=== PATIENT | male | born 2000 | race Asian ===

== ENCOUNTER 2022-10-23 12:59 | Emergency (ER) | payer OTHER ==
[~2022-10-23] VITALS: Ht 160 cm; Wt 56.7 kg
[2022-10-23 13:08] VITALS: BP_SYST 161; PULSE 98; RESP 18; TEMP 98.3; O2SAT 99
--- NOTE | 2022-10-23 13:25 | NUR ---
Pt brought by self, ambulatory, A&Ox4, pt presents to ER with chest pain and intermittent numbness on bilateral arms, VSS, skin pink and warm, cap refill <3, pt states he may having a heart attack, will cont to monitor.
--- NOTE | 2022-10-23 14:58 | NUR ---
Sam drew in [facility] - 10/23/22 at [email or web address] Bird evaluating patient at bedside
--- NOTE | 2022-10-23 14:58 | NUR ---
Dr Bird evaluating patient in the triage room
[2022-10-23] MEDS ORDERED: CLON0.5T4 PO (15:05)
[2022-10-23] MEDS ORDERED: NAPR-688 PO (15:05)
[2022-10-23 15:24] VITALS: BP_SYST 161; PULSE 98; RESP 18; TEMP 98.3; O2SAT 99
--- NOTE | 2022-10-23 15:25 | NUR ---
Patient given written and verbal discharge instructions and verbalizes understanding. ER MD discussed with patient the results and treatment provided. Patient in stable condition. ID arm band removed. Rx of KLONOPIN, NAPROXEN given. Patient educated on pain management and to follow up with PMD. Pain Scale 3/10 . Opportunity for questions provided and answered. Medication side effect fact sheet provided.
== END 2022-10-23 15:25 | disposition home or self-care (01) ==
LOC: SED 12:59
DX: R07.9 Chest pain, unspecified (principal); Z79.899 Other long term (current) drug therapy
CPT/HCPCS: 71045; 93005; 99283